=== PATIENT | female | born 1975 | race African-American/Black ===

== ENCOUNTER 2021-06-26 11:32 | Outpatient (CLI) | payer OTHER, SELFPAY ==
[2021-06-26 18:42] LABS: Hematocrit 41.3 % (37.0-47.0); Hemoglobin 12.8 g/dL (12.0-15.0); Mean Corpuscular Hemoglobin 25.7 pg (26-34); Mean Corpuscular Volume 82.8 fl (80-100); Mean Platelet Volume 10.2 fl (7.4-10.4); Platelet Count Result 360 k/mm3 (150-375); Red Blood Count 4.99 M/mm3 (4.2-5.4); Red Cell Distribution Width 15.1 % (11.5-14.5); White Blood Count 5.1 K/mm3 (4.5-10.0)
[2021-06-26 19:09] LABS: Alanine Aminotransferase 11 U/L (4-35); Albumin Level 4.1 g/dL (3.5-5.1); Alkaline Phosphatase 58 U/L (38-126); Anion Gap 10 mmol/L (8-16); Aspartate Amino Transferase 19 U/L (14-36); Bilirubin,Total 0.7 mg/dL (0.2-1.3); Blood Urea Nitrogen 12 mg/dL (7-17); Calcium 9.4 mg/dL (8.4-10.2); Carbon Dioxide 19 mmol/L (22-30); Chloride 107 mmol/L (98-107); Cholesterol 194 mg/dL (0-200); Estimated Glomerular Filt Rate > 60; Glucose 93 mg/dL (65-110); HDL Direct 79 mg/dL; Potassium 3.9 mmol/L (3.4-5.0); Sodium 136 mmol/L (137-145); Triglycerides 140 mg/dL (<150)
[2021-06-26 19:20] LABS: LDL Cholesterol Direct 79 mg/dL
[2021-06-26 19:38] LABS: Thyroid Stimulating Hormone Reflex 0.392 uIU/mL (0.465-4.68)
[2021-06-26 20:29] LABS: Free T4 Free Thyroxine Reflex 1.16 ng/dL (0.78-2.19)
[2021-06-26 21:16] LABS: Total Triiodothyronine (T3) 1.83 NG/ML (0.97-1.69)
== END 2021-06-26 11:33 | disposition home or self-care (01) ==
LOC: ANHBWCLAB 11:33
PROVIDERS: PCP Family Medicine; Visit Provider Family Medicine
DX: D64.9 Anemia, unspecified (principal); G43.909 Migraine, unspecified, not intractable, without status migrainosus; J45.909 Unspecified asthma, uncomplicated; E66.9 Obesity, unspecified
CPT/HCPCS: 36415; 80053; 80061; 83036; 84439; 84443; 84480; 85027

== ENCOUNTER 2021-07-17 07:35 | Outpatient (CLI) | payer OTHER, SELFPAY | END 2021-07-17 07:36 | disposition home or self-care (01) | PROVIDERS: PCP Family Medicine; Visit Provider Family Medicine | DX: R79.89 Other specified abnormal findings of blood chemistry (principal) | CPT/HCPCS: 36415; 84443 ==

== ENCOUNTER 2022-07-23 07:49 | Outpatient (CLI) | payer OTHER, SELFPAY ==
[2022-07-23 18:40] LABS: Alanine Aminotransferase 15 U/L (6-35); Albumin Level 4.1 g/dL (3.5-5.1); Alkaline Phosphatase 46 U/L (38-126); Anion Gap 4 mmol/L (8-16); Aspartate Amino Transferase 34 U/L (14-36); Bilirubin,Total 0.6 mg/dL (0.2-1.3); Blood Urea Nitrogen 8 mg/dL (7-17); Calcium 8.8 mg/dL (8.4-10.2); Carbon Dioxide 30 mmol/L (22-30); Chloride 103 mmol/L (98-107); Cholesterol 196 mg/dL (0-200); Estimated Glomerular Filt Rate > 60; Glucose 83 mg/dL (65-110); HDL Direct 70 mg/dL; Potassium 3.4 mmol/L (3.4-5.0); Sodium 137 mmol/L (137-145); Triglycerides 112 mg/dL (<150)
[2022-07-23 18:41] LABS: Basophils Percent Auto 0.5 % (0.2-1.2); Eosinophils Absolute Auto 0.1 K/mm3 (0-0.3); Eosinophils Percent Auto 1.2 % (0-4.4); Hematocrit 40.1 % (37.0-47.0); Hemoglobin 12.2 g/dL (12.0-15.0); Immature Granulocyte Absolute 0.01 K/mm3 (0.00-0.031); Immature Granulocyte Percent A 0.2 % (0-0.5); Lymphocytes Absolute Auto 0.96 K/mm3 (0.9-3.2); Lymphocytes Percent Auto 23.9 % (18.3-44.2); Mean Corpuscular HGB Conc 30.4 g/dl (32-36); Mean Corpuscular Hemoglobin 25.1 pg (26-34); Mean Corpuscular Volume 82.3 fl (80-100); Mean Platelet Volume 10.8 fl (7.4-10.4); Monocytes Absolute Auto 0.3 K/mm3 (0.1-0.6); Monocytes Percent Auto 7.5 % (2.6-8.5); Neutrophils Absolute Auto 2.7 K/mm3 (1.3-6.7); Neutrophils Percent Auto 66.7 % (45.5-73.1); Platelet Count Result 301 k/mm3 (150-375); Red Blood Count 4.87 M/mm3 (4.2-5.4); Red Cell Distribution Width 14.5 % (11.5-14.5)
[2022-07-23 18:51] LABS: LDL Cholesterol Direct 83 mg/dL
[2022-07-23 19:09] LABS: Thyroid Stimulating Hormone 0.888 uIU/mL (0.465-4.680)
== END 2022-07-23 07:50 | disposition home or self-care (01) ==
LOC: ANHBWCLAB 07:50
PROVIDERS: PCP Family Medicine; Visit Provider Family Medicine
DX: D64.9 Anemia, unspecified (principal); G43.909 Migraine, unspecified, not intractable, without status migrainosus; J45.909 Unspecified asthma, uncomplicated; R79.89 Other specified abnormal findings of blood chemistry; E66.9 Obesity, unspecified; Z12.11 Encounter for screening for malignant neoplasm of colon
CPT/HCPCS: 36415; 80053; 80061; 84443; 85025

== ENCOUNTER 2024-06-16 14:24 | Outpatient (CLI) | payer OTHER, SELFPAY ==
[2024-06-16 15:56] LABS: Influenza A QL RT-PCR Negative (Negative); Influenza B QL RT-PCR Negative (Negative); RSV RNA, RT-PCR Negative (Negative); SARS-CoV-2 RNA PCR Negative (Negative)
--- OUTSIDE RECORDS SUMMARY | 2024-06-16 16:06 | XMS_ITS | Encounter Summary ---
Author Organization [facility] Address [address] [place] [address] Care Team Providers Care Ironmolder Name Role Phone Kyara Hope MD Unavailable [phone] Edouard Wellington MD Primary Care Provider [phone] Michael Sanchez MD Unavailable [phone] Reason for Visit * Reason Onset Date Comments COVID-19 EVALUATION 06/16/2024 Encounter Details Date Type Department Care Team (Late st Contact Info) Description 06/16/2024 Telephone [facility] Occupatiuonal Health [address] [place] [address] Room 3420 (Third Floor) [place] [address] Jammie Maria, RN COVID-19 EVALUATION Social History Tobacco Use Types Packs/Day Years Used Date Smoking Tobacco: Never Smokeless Tobacco: Never AUDIT-C Answer Date Recorded Q1: How often do you have a drink containing alc ohol? 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 Employee Employer: [facility] Are you 100% SOTO? No Employee Facility: [facility] Are you okay receiving positive results and further instructions via email? 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 No Have you had a vaccine within the past 48 hours? No Are you calling about a home covid positive test? No Have you tested positive for COVID in the past 60 days? (not including the positive home test you are calling about today) No Have you had a known, specific Covid exposure within the last 14 days? No Have you had an exposure to Mpox, pertussis or Ken Influenza in the last 30 days? No Employee Symptoms: Yes Date of employee symptom onset: 06/13/2024 Description of Symptoms: Cough;Other Other Symptoms: post nasal drainage, hoarseness of voice Did you work on site 48 hours prior to symptom onset and/or any days while symptomatic? Yes Which date(s) did the employee work? 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 No Did you come within 6 feet for more than 15 minutes with any patients without wearing a mask duringthe 48 hours prior to symptom onset? And/or while symptomatic? No Plan: (A) Stay home and test for symptoms Testing Site Location: Going to her PCP and plans to have testing done there,then call [facility] with results. If PCP cannot do quad testing, she will go by [facility]. Reviewed Script A Script A0 (stay home and test) for symptomatic employees (HCW and Non-HCW) Thank you for calling the Occupational Health Call Center. This email contains the same informationand recommendations discussed during your call. You should also forward this information to your supervisor production managing as confirmation. Given your symptoms, you should not come to work and will be referred for combined COVID/Influenza/RSV testing. If you have had a COVID infection in the past 2 months, your COVID test will likely result positivedue to your prior infection. In this case, further guidance will be based solely on Influenza and RSV results. If you are at work on site, you must leave work now. Notify your supervisor production managing that you have been directed to do so by the Occupational Health Call Center. Please go to the employee testing site as directed for your test. They should be expecting you; if there is any confusion, please call us at [phone]. Since you are reporting symptoms, wear a hospital provided mask when reporting for your test. While you are awaiting testing and results, you must remain off work. You should isolate yourself at home, avoid contact with any household members as much as possible, and stay in your home without leaving except for medical care. You should let your supervisor production managing know that you will not be coming to work. Although we will email your supervisor production managing to confirm this, it is still your responsibility to notify your supervisor production managing as you wouldfor any other work absence. If you have the option to cannery worker and you feel well enough, it must be approved by your supervisor production managing We will notify you of your test results, which are usually available within 24- 48 hours. Your results will also post to your [facility] My Chart account ([email or web address]). Once yourresults are back, you will receive further instruction from Occupational Health. All further communication, including test results and guidance on returning to work, will be through the email you provided us during your screening. You must follow any additional isolation or quarantine instructions provided to you by federal, state, or local health authorities. Sincerely, Occupational Health Call Center Additional resources around self-isolation and how to prevent spread are available at: www.cdc.gov/coronavirus/2019-ncov TS BOOK WRITER documented in this encounter Plan of Treatment Scheduled Orders Name Type Priority Associated Diagnoses Orde r Schedule Influenza A/B, RSV, and COVID-19 PCR Nasopharyngeal Microbiology Routine Acute cough Post-nasal drainage Expected: 06/19/2024, Expires: 06/16/2025 documented as of this encounter Visit Diagnoses Diagnosis Acute cough- Primary Post-nasal drainage Other diseases of nasal cavity and sinuses documented in this encounter Additional Health Concerns Infection Onset Date Last Indicated Resolved Time COVID: Suspected 06/16/2024 06/16/2024 documented as of this encounter Care Teams Ironmolder Relationship Specialty Start Date End Date Edouard Wellington MD [address] [address] PCP - General Family Practice 08/07/21 Kyara Hope MD [address] [address] Referring Physician Obstetrics and Gynecology 08/03/21 Michael Sanchez MD [address] [id number] Referring Physician Obstetrics and Gynecology 09/04/22 documented as of this encounter
--- OUTSIDE RECORDS SUMMARY | 2024-06-16 16:06 | XMS_ITS | Clinical Summary ---
Author Organization [facility] Address [address] [place] [address] Care Team Providers Care Salesperson China And Glassware Name Role Phone Unavailable Primary Care Provider Unavailabl e Allergies No known active allergies Medications montelukast (SINGULAIR) 10 mg tablet 0 Active cetirizine (ZyrTEC) 10 mg tablet Take 10 mg by mouth 1 (one) time each day. Active methylPREDNISo lone (MEDROL DOSPAK) 4 mg tablet 6 TABLETS ON DAY ONE, 5 TABLETS DAY TWO, 4 TABLETS DAY THREE, 3 TABLETS DAY FOUR, 2 TABLETS DAY FIVE, AND 1 TABLET DAY SIX 1 Active EluRyng 0.12-0.015 mg/24 hr vaginal ring INSERT 1 RING VAGINALLY DIRECTED. REMOVE AFTER 3 WEEKS & WAIT 7 DAYS BEFORE INSERTING A NEW RING 2 Active Ozempic 0.25 mg or 0.5 mg(2 mg/1.5 mL) pen injector PLEASE SEE ATTACHED FOR DETAILED DIRECTIONS 2 Active albuterol HFA (PROVENTIL HFA;VENTOLIN HFA) 90 mcg/actuation inhaler every 4 hours Active benzonatate (TESSALON) 200 mg capsule Take 200 mg by mouth 3 (three) times a day if needed. 2 Active fluconazole (DIFLUCAN) 150 mg tablet fluconazole 150 mg tablet Active ibuprofen (ADVIL,MOTRIN) 800 mg tablet ibuprofen 800 mg tablet Active metroNIDAZOLE (METROGEL) 0.75 % (37.5mg/5 gram) vaginal gel 1 (one) time each day. Active topiramate (TOPAMAX) 25 mg tablet topiramate 25 mg tablet Active cetirizine (ZyrTEC) 10 mg chewable tablet Chew 10 mg 1 (one) time each day. Active methylPREDNISo lone (MEDROL DOSPAK) 4 mg tablet See administration instructions. 2 Active montelukast (SINGULAIR) 10 mg tablet Take 10 mg by mouth 1 (one) time each day. 2 Active Active Problems No known active problems Immunizations Immunization Administration Dates Next Due COVID-19, mRNA, LNP-S, PF, 1 00 mcg/0.5mL dose or 50 mcg/0.25mL dose 06/21/2020,05/24/2020 Social History Tobacco Use Types Packs/Day Years Used Date Smoking Tobacco: Never Smokeless Tobacco: Never Alcohol Use Standard Drinks/Week Comments Never 0 (1 standard drink = 0.6 oz pur e alcohol) Comments Unknown Sex and Gender Information Value Date Recorded Sex Assigned at Not on file Legal Sex Female 5:16 PM PST Gender Identity Not on file Sexual Orientation Not on file Last Filed Vital Signs Vital Sign Reading Time Taken Comments Blood Pressure 116/72 11/26/2021 2:42 PM CDT Pulse 78 11/26/2021 2:42 PM CDT Temperature 35.5 C (95.9 F) 02/06/2021 5:57 PM CDT Respiratory Rate - - Oxygen Saturation - - Inhaled Oxygen Concentration - - Weight - - Height - - Body Mass Index - - Plan of Treatment Health Maintenance Due Date Last Done Comments Dental X-Ray: Bitewings 01/05/2021 07/04/2020 Periodontal Maintenance 02/27/2022 11/27/19 22, 02/06/2021, 10/11/2020, Additional history exists Scaling and Root Planing 04/18/2022 04/04/2020 Dental Oral Exam 05/30/2022 11/26/2021, , 07/06/2020, Additional history exists Dental X-Ray: Full Mouth 11/15/2022 11/15/2019, 04/15 Dental X-Ray: Panoramic 11/15/2022 11/15/2019, 05/04 Meningococcal B Vaccine Aged Out No l onger eligible based on patient's age to complete this topic Procedures Procedure Name Priority Date/Time Associated Diagnosis Comments PERIODIC ORAL EVALUATION - ESTABLISHED PATIENT Routine 11/26/2021 3:00 PM CDT PERIO MAINTENANCE Routine 11/26/2021 3:0 0 PM CDT UL PERIODONTAL SCALING AND ROOT PLANING - ONE TO THREE TEETH PER QUADRANT Routine 04/04/2020 2:00 AM CIVIL ENGINEERING DESIGNER PANORAMIC RADIOGRAPHIC IMAGE Routine 05/04/2019 2:00 AM CIVIL ENGINEERING DESIGNER INTRAORAL - COMPREHENSIVE SERIES OF RADIOGRAPHIC IMAGES Routine 05/04/2019 2:00 AM CIVIL ENGINEERING DESIGNER from Last 3 Months or Most Recently Relevant to Health Maintenance Insurance
--- OUTSIDE RECORDS SUMMARY | 2024-06-16 16:06 | XMS_ITS | Referral Summary ---
Author Organization [facility] Medical [facility] [address] [place] [address] Care Team Providers Care Presser Hand Name Role Phone Kyara Hope MD Unavailable [phone] Edouard Wellington MD Primary Care Provider [phone] Michael Sanchez MD Unavailable [phone] Encounters Date Type Department Care Team Description 06/16/2024 Telephone [facility] [address] (Third Floor) [place] [address] Jammie Maria, RN COVID-19 EVALUATION from Last 3 Months Allergies No known active allergies Medications albuterol HFA (PROVENTIL HFA,VENTOLIN HFA,PROAIR HFA) 90 mcg/actuation inhaler every 4 hours Active cetirizine (ZyrTEC) 10 mg tablet daily Active ibuprofen (ADVIL,MOTRIN) 800 mg tablet ibuprofen 800 mg tablet Active etonogestreL-et hinyl estradioL (NUVARING, ELURYNG) 0.12-0.015 mg/24 hr vaginal ring NuvaRing 0.12 mg -0.015 mg/24 hr vaginal INSERT 1 RING VAGINALLY FOR 3 WEEKS, THEN REMOVE FOR 1 WEEK Active fluconazole (DIFLUCAN) 150 mg tablet fluconazole 150 mg tablet Active metroNIDAZOLE (METROGEL) 0.75 % vaginal gel daily Active neomycin-bacitr acin-polymyxin- hydrocortisone (CORTISPORIN) 3.5-400-10,000 mg-unit/g-1% ophthalmic ointment APPLY A SMALL AMOUNT ON EYELID AT BEDTIME 0 9 Active topiramate (TOPAMAX) 25 mg tablet topiramate 25 mg tablet Active montelukast (SINGULAIR) 10 mg tablet Take 1 tablet (10 mg total) by mouth daily 2 Active Active Problems No known active problems Social History Tobacco Use Types Packs/Day Years Used Date Smoking Tobacco: Never Smokeless Tobacco: Never Tobacco Cessation:Counseling Given: Not Answered AUDIT-C Answer Date Recorded Q1: How often do you have a drink containing alc ohol? 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 Gender Identity Not on file Sexual Orientation Not on file Last Filed Vital Signs Vital Sign Reading Time Taken Comments Blood Pressure - - Pulse - - Temperature - - Respiratory Rate - - Oxygen Saturation - - Inhaled Oxygen Concentration - - Weight 85.7 kg (188 lb 15 oz) 10/16/2022 1:50 PM CDT Height 162.6 cm (5' 4.02 ) 10/16/2022 1:50 PM CD T Body Mass Index 32.41 10/16/2022 1:50 PM CDT Plan of Treatment Not on file Medical Devices Implanted Type Area Manufacturing Engineering Technician Device Identifier Shelf Expiration Date Model / Serial / Lot Bard Peripheral Vascular Ultraclip Bard 17ga 10cm 2 Trigger Permanent Ultrasound [id number] - [id number] Implanted:Qty: 1 on 09/20/[address] [facility] [employer] Peripheral Vascular [id number] / / Procedures Procedure Name Priority Date/Time Associated Diagnosis Comments SCREENING MAMMOGRAM BILATERAL W NIKKI Schedule Routine, Read Routine (OP Routine) 09/10/2023 7:50 AM CDT Screening mammogram, encounter for from Last 3 Months or Most Recently Relevant to Health Maintenance Results * Screening Mammogram Bilateral W Nikki (09/10/2023 7:50 AM CDT) Anatomical Region Laterality Modality Breast Bilateral Mammography Narrative 09/10/2023 11:53 AM CDT Mammogram Technique: Bilateral Digital Breast Tomosynthesis, Bilateral C-view 2D Screening mammogram. Views obtained: bilateral craniocaudal and bilateral mediolateral oblique. Computer Aided Detection was performed. Mammogram Findings: The present examination has been compared to prior imaging studies performed at [facility] on 08/31/2022 and 10/16/2022, and at [facility] on 07/31/2021. There are scattered areas of fibroglandular density. There is no suspicious abnormality in either breast. Impression: There is no mammographic evidence of malignancy. Annual screening mammography is recommended. OVERALL FINAL ASSESSMENT: BI-RADS CATEGORY 1: Negative. Procedure Note May Jara MD - 09/10/2023 Mammogram Technique: Bilateral Digital Breast Tomosynthesis, Bilateral C-view 2D Screening mammogram. Views obtained: bilateral craniocaudal and bilateral mediolateral oblique. Computer Aided Detection was performed. Mammogram Findings: The present examination has been compared to prior imaging studies performed at [facility] on 08/31/2022 and 10/16/2022, and [facility] on 07/31/2021. There are scattered areas of fibroglandular density. There is no suspicious abnormality in either breast. Impression: There is no mammographic evidence of malignancy. Annual screening mammography is recommended. OVERALL FINAL ASSESSMENT: BI-RADS CATEGORY 1: Negative. us Self Screening Mammogram IMG MAMMO PROCEDURES Fi nal Result from Last 3 Months or Most Recently Relevant to Health Maintenance Additional Health Concerns Infection Onset Date Last Indicated COVID: Suspected 06/16/2024 06/16/2024 Insurance [facility] EMPL[employer] HE[employer] PLANS Address: [address] [facility] [id number] [place] [address] [employer] Address: [address] [place] [address] Care Teams Presser Hand Relationship Specialty Start Date End Date Edouard Wellington MD [address] [address] PCP - General Family Practice 08/07/21 Kyara Hope MD [address] [address] Referring Physician Obstetrics and Gynecology 08/03/21 Michael Sanchez MD [address] [address] Referring Physician Obstetrics and Gynecology 09/04/22
--- OUTSIDE RECORDS SUMMARY | 2024-06-16 16:06 | XMS_ITS | Encounter Summary ---
Author Organization [facility] Address [address] [place] [address] Care Team Providers Care Shipping And Receiving Associate Name Role Phone Randa Jeffries NP Primary Care Provider [phone] Reason for Visit * Diagnostic Imaging (Routine) - Closed Specialty Diagnoses / Procedures Referred By Isabel butler Referred To Contact Procedures Breast Imaging Screening Outside Reference Tara King NP Phone: tel: fax: Referral ID Status Reason Start Date Expiration Date Visits Re quested Visits Authorized [id number] Closed 08/27/2021 09/26/2022 1 1 Encounter Details Date Type Department Care Team (Late st Contact Info) Description 08/09/2020 Hospital Encounter [facility] [address] [place] [address] Social History Tobacco Use Types Packs/Day Years [...] on file Legal Sex Female 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 CONE SEWER Gender Identity Not on file Sexual Orientation Not on file documented as of this encounter Functional Status documented as of this encounter Plan of Treatment Not on file documented as of this encounter Procedures Procedure Name Priority Date/Time Associated Diagnosis Comments BREAST IMAGING MG SCREENING OUTSIDE REFERENCE Routine 08/09/2020 12:00 AM CDT documented in this encounter Results * Breast Imaging Screening Outside Reference (08/09/2020 12:00 AM CDT) Impressions [facility]_M[facility]MO[facility] - 08/27/2021 9:45 AM CDT These images are for Reference purposes only and have not been reviewed by [facility] Radiology. There will be no report generated by a [facility] Radiologist. Narrative [facility]_MAMMO[facility] - 08/27/2021 9:45 AM CDT EXAMINATION: Images For Reference Purposes Only us Tara King NP IMG MAMMO PROCEDURES Final Re sult [facility] documented in this encounter Visit Diagnoses Not on filedocumented in this encounter Additional Health Concerns Infection Onset Date Last Indicated Resolved Time COVID: Suspected 06/16/2024 06/16/2024 documented as of this encounter Care Teams Shipping And Receiving Associate Relationship Specialty Start Date End Date Randa Jeffries NP [address] [place] [address] PCP - General Nurse Practitioner 01/01/19 08/06/21 documented as of this encounter
--- OUTSIDE RECORDS SUMMARY | 2024-06-16 16:06 | XMS_ITS | Encounter Summary ---
Author Organization [facility] Address [address] [place] [address] Care Team Providers Care Mushroom Sorter Grader Name Role Phone Unavailable Primary Care Provider Unavailabl e Prior Encounters Date Type Department Care Team Description 12/11/2021 3:30 PM CDT Office Visit [facility] [address] [place] [address] Yannick Gonzalez DDS 11/26/2021 Travel 11/26/2021 3:00 PM CDT Office Visit [facility] [address] [place] [address] 11/26/2021 3:00 PM CDT Office Visit [facility] [address] [place] [address] Yannick Gonzalez DDS 02/06/2021 Travel 02/06/2021 6:00 PM CDT Office Visit [facility] [address] [place] [address] Deyis Martinez, DMD 02/06/2021 6:00 PM CDT Office Visit [facility] [address] [place] [address] Iwona Francois RDH 10/11/2020 Travel 10/11/2020 1:00 PM CDT Office Visit [facility] [address] [place] [address] Iwona Francois RDH 05/03/2019 Converted CPS Chart Documents [facility] [address] [place] [address] <No scans attached> 05/03/2019 Converted 13x Documents [facility] [address] [place] [address] <No scans attached> Last Filed Vital Signs Vital Sign Reading Time Taken Comments Blood Pressure 116/72 11/26/2021 2:42 PM CDT Pulse 78 11/26/2021 2:42 PM CDT Temperature 35.5 C (95.9 F) 02/06/2021 5:57 PM CDT Respiratory Rate - - Oxygen Saturation - - Inhaled Oxygen Concentration - - Weight - - Height - - Body Mass Index - - Plan of Treatment Not on file Procedures Procedure Name Priority Date/Time Associated Diagnosis Comments NC X-RAY Routine 12/11/2021 3:30 PM CDT 30 CEMENT CROWN Routine 12/11/2021 3:30 PM CDT 30 CORE BUILDUP, INCLUDING ANY PINS WHEN REQUIRED Routine 12/11/2021 3:30 PM CDT 30 CERECFIRED CROWNPOST Routine 12/12/19 3:30 PM CDT ORAL HYGIENE INSTRUCTIONS Routine 2021 3:00 PM CDT PERIO MAINTENANCE Routine 11/26/2021 3:0 0 PM CDT UR ANTIBACT IRR/QUAD Routine 11/26/2021 3:00 PM CDT MARCELINA DECON Routine 11/26/2021 3:00 PM CDT UL ANTIBACT IRR/QUAD Routine 11/26/2021 3:00 PM CDT LR ANTIBACT IRR/QUAD Routine 11/26/2021 3:00 PM CDT LL ANTIBACT IRR/QUAD Routine 11/26/2021 3:00 PM CDT PERIODIC ORAL EVALUATION - ESTABLISHED PATIENT Routine 11/26/2021 3:00 PM CDT ORAL HYGIENE INSTRUCTIONS Routine 2020 6:00 PM CDT PERIO MAINTENANCE Routine 02/06/2021 6:0 0 PM CDT PERIODIC ORAL EVALUATION - ESTABLISHED PATIENT Routine 02/06/2021 6:00 PM CDT TOPICAL APPLICATION OF FLUORIDE VARNISH Routine 10/11/2020 1:00 PM CDT PERIO MAINTENANCE Routine 10/11/2020 1:0 0 PM CDT PERIODIC ORAL EVALUATION - ESTABLISHED PATIENT Routine 07/06/2020 2:00 AM CDT PERIO MAINTENANCE Routine 07/04/2020 2:0 0 AM CDT ORAL HYGIENE INSTRUCTIONS Routine 2020 2:00 AM CDT ORAL-B ELEC BRUSH Routine 07/04/2020 2:0 0 AM CDT BITEWINGS - FOUR RADIOGRAPHIC IMAGES Routine 07/04/2020 2:00 AM CDT 20 DO COMPOSITE FILLING Routine 07/05/19 2:00 AM CDT 5 B COMPOSITE FILLING Routine 07/04/2020 2:00 AM CDT ORAL HYGIENE INSTRUCTIONS Routine 2019 2:00 AM BRAKE OPERATOR ORAL HYGIENE INSTRUCTIONS Routine 2019 2:00 AM BRAKE OPERATOR UL PERIODONTAL SCALING AND ROOT PLANING - ONE TO THREE TEETH PER QUADRANT Routine 04/04/2020 2:00 AM BRAKE OPERATOR UL ANTIBACT IRR/QUAD Routine 04/04/2020 2:00 AM BRAKE OPERATOR TOPICAL APPLICATION OF FLUORIDE VARNISH Routine 04/04/2020 2:00 AM BRAKE OPERATOR PROPHYLAXIS - ADULT Routine 04/04/2020 2 :00 AM BRAKE OPERATOR CANCELLED APPOINTMENT Routine 06/11/2019 2:00 AM BRAKE OPERATOR CANCELLED APPOINTMENT Routine 06/11/2019 2:00 AM BRAKE OPERATOR 14 LO AMALGAM 2 SURFACE Routine 05/04/19 20 2:00 AM BRAKE OPERATOR 2 LO AMALGAM 2 SURFACE Routine 0 2:00 AM BRAKE OPERATOR 30 CERECFIRED CROWNPOST Routine 05/04/19 2:00 AM BRAKE OPERATOR 13 CERECFIRED CROWNPOST Routine 05/04/19 20 2:00 AM BRAKE OPERATOR ORAL HYGIENE INSTRUCTIONS Routine 2019 2:00 AM BRAKE OPERATOR TOPICAL APPLICATION OF FLUORIDE VARNISH Routine 05/04/2019 2:00 AM BRAKE OPERATOR PROPHYLAXIS - ADULT Routine 05/04/2019 2 :00 AM BRAKE OPERATOR COMPREHENSIVE ORAL EVALUATION - NEW OR ESTABLISHED PATIENT Routine 05/04/2019 2:00 AM BRAKE OPERATOR PANORAMIC RADIOGRAPHIC IMAGE Routine 05/04/2019 2:00 AM BRAKE OPERATOR INTRAORAL - COMPREHENSIVE SERIES OF RADIOGRAPHIC IMAGES Routine 05/04/2019 2:00 AM BRAKE OPERATOR INTRAORAL PHOTO Routine 05/04/2019 2:00 AM BRAKE OPERATOR INTRAORAL PHOTO Routine 05/04/2019 2:00 AM BRAKE OPERATOR INTRAORAL PHOTO Routine 05/04/2019 2:00 AM BRAKE OPERATOR INTRAORAL PHOTO Routine 05/04/2019 2:00 AM BRAKE OPERATOR 15 LO COMPOSITE FILLING Routine 05/04/19 20 2:00 AM BRAKE OPERATOR 5 DO COMPOSITE FILLING Routine 0 2:00 AM BRAKE OPERATOR 4 MO COMPOSITE FILLING Routine 0 2:00 AM BRAKE OPERATOR 3 LO COMPOSITE FILLING Routine 0 2:00 AM BRAKE OPERATOR 31 O COMPOSITE FILLING Routine 0 2:00 AM BRAKE OPERATOR 20 O COMPOSITE FILLING Routine 0 2:00 AM BRAKE OPERATOR 18 O COMPOSITE FILLING Routine 0 2:00 AM BRAKE OPERATOR Visit Diagnoses Not on file Insurance [facility] PPO
--- OUTSIDE RECORDS SUMMARY | 2024-06-16 16:06 | XMS_ITS | Encounter Summary ---
Author Organization [facility] Healthcare Address [address] [place] [address] Care Team Providers Care Metal Shaping Machine Operator Name Role Phone Randa Jeffries NP Primary Care Provider + [phone] Reason for Visit * Diagnostic Imaging (Routine) - Closed Specialty Diagnoses / Procedures Referred By Isabel butler Referred To Contact Procedures Breast Imaging Diagnostic Outside Reference Tara King NP Phone: tel: fax: Referral ID Status Reason Start Date Expiration Date Visits Re quested Visits Authorized [id number] Closed 08/27/2021 09/26/2022 1 1 Encounter Details Date Type Department Care Team (Late st Contact Info) Description 08/21/2020 Hospital Encounter [facility] [address] [place] [id number] Social History Tobacco Use Types Packs/Day Years [...] on file 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 Gender Identity Not on file Sexual Orientation Not on file documented as of this encounter Functional Status documented as of this encounter Plan of Treatment Not on file documented as of this encounter Procedures Procedure Name Priority Date/Time Associated Diagnosis Comments BREAST IMAGING MG DIAGNOSTIC OUTSIDE REFERENCE Routine 08/21/2020 12:00 AM CDT documented in this encounter Results * Breast Imaging Diagnostic Outside Reference (08/21/2020 12:00 AM CDT) Impressions [facility] - 08/27/2021 9:45 AM CDT These images are for Reference purposes only and have not been reviewed by [facility]. There will be no report generated by a [facility]iologist. Narrative [facility] - 08/27/2021 9:45 AM CDT EXAMINATION: Images For Reference Purposes Only us Tara King NP IMG MAMMO PROCEDURES Final Re sult [facility] documented in this encounter Visit Diagnoses Not on filedocumented in this encounter Additional Health Concerns Infection Onset Date Last Indicated Resolved Time COVID: Suspected 06/16/2024 06/16/2024 documented as of this encounter Care Teams Metal Shaping Machine Operator Relationship Specialty Start Date End Date Randa Jeffries NP [address] [place] [id number] PCP - General Nurse Practitioner 01/01/19 08/06/21 documented as of this encounter
--- OUTSIDE RECORDS SUMMARY | 2024-06-16 16:06 | XMS_ITS | Encounter Summary ---
Author Organization [facility] Healthcare Address [address] [place] [address] Care Team Providers Care Glue Mixer Name Role Phone Unavailable Primary Care Provider Unavailabl e Reason for Visit * Diagnostic Imaging (Routine) - Closed Specialty Diagnoses / Procedures Referred By Isabel butler Referred To Contact Procedures Breast Imaging Screening Outside Reference Tara King, NATALIE Phone: tel: fax: Referral ID Status Reason Start Date Expiration Date Visits Re quested Visits Authorized [id number] Closed 08/27/2021 09/26/2022 1 1 Encounter Details Date Type Department Care Team (Late st Contact Info) Description 03/01/2017 Hospital Encounter [facility] [address] [place] [id number] Social History Tobacco Use Types Packs/Day Years [...] on file 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 Gender Identity Not on file Sexual Orientation Not on file documented as of this encounter Functional Status documented as of this encounter Plan of Treatment Not on file documented as of this encounter Procedures Procedure Name Priority Date/Time Associated Diagnosis Comments BREAST IMAGING MG SCREENING OUTSIDE REFERENCE Routine 03/01/2017 12:00 AM PAYROLL DIRECTOR documented in this encounter Results * Breast Imaging Screening Outside Reference (03/01/2017 12:00 AM PAYROLL DIRECTOR) Impressions [facility] - 08/27/2021 9:44 AM CDT These images are for Reference purposes only and have not been reviewed by [facility]. There will be no report generated by a [facility]iologist. Narrative RAD_MAMMO[facility] - 08/27/2021 9:44 AM CDT EXAMINATION: Images For Reference Purposes Only us Tara King NP IMG MAMMO PROCEDURES Final Re sult [facility] documented in this encounter Visit Diagnoses Not on filedocumented in this encounter Additional Health Concerns Infection Onset Date Last Indicated Resolved Time COVID: Suspected 06/16/2024 06/16/2024 documented as of this encounter
--- OUTSIDE RECORDS SUMMARY | 2024-06-16 16:06 | XMS_ITS | Encounter Summary ---
Author Organization [facility] Healthcare Address [address] [place] [address] Care Team Providers Care Clerk Typist Name Role Phone Randa Jeffries NP Primary Care Provider + [phone] Reason for Visit * Diagnostic Imaging (Routine) - Closed Specialty Diagnoses / Procedures Referred By Isabel butler Referred To Contact Procedures Breast Imaging US Outside Reference Tara King NP Phone: tel: fax: Referral ID Status Reason Start Date Expiration Date Visits Re quested Visits Authorized [id number] Closed 08/27/2021 09/26/2022 1 1 Encounter Details Date Type Department Care Team (Late st Contact Info) Description 08/21/2020 12:05 AM CDT Hospital Encounter [facility] [address] [place] [id number] Social History Tobacco Use Types Packs/Day Years [...] on file 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 Gender Identity Not on file Sexual Orientation Not on file documented as of this encounter Functional Status documented as of this encounter Plan of Treatment Not on file documented as of this encounter Procedures Procedure Name Priority Date/Time Associated Diagnosis Comments BREAST IMAGING US OUTSIDE REFERENCE Routine 08/21/2020 12:05 AM CDT documented in this encounter Results * Breast Imaging US Outside Reference (08/21/2020 12:05 AM CDT) Impressions [facility] - 08/27/2021 9:45 AM CDT These images are for Reference purposes only and have not been reviewed by [facility]. There will be no report generated by a [facility]iologist. Narrative [facility] - 08/27/2021 9:45 AM CDT EXAMINATION: Images For Reference Purposes Only us Tara King NP IMG MAMMO PROCEDURES Final Re sult [facility] documented in this encounter Visit Diagnoses Not on filedocumented in this encounter Additional Health Concerns Infection Onset Date Last Indicated Resolved Time COVID: Suspected 06/16/2024 06/16/2024 documented as of this encounter Care Teams Clerk Typist Relationship Specialty Start Date End Date Randa Jeffries NP [address] [place] [address] PCP - General Nurse Practitioner 01/01/19 08/06/21 documented as of this encounter
--- OUTSIDE RECORDS SUMMARY | 2024-06-16 16:06 | XMS_ITS | Clinical Summary ---
Author Organization [facility] Medical [facility] 2 Address [address] [facility] [place] [address] Care Team Providers Care Phosphoric Acid Supervisor Name Role Phone Kyara Hope MD Unavailable [phone] Edouard Wellington MD Primary Care Provider [phone] Michael Sanchez MD Unavailable [phone] Allergies No known active allergies Medications albuterol [...] tablet (10 mg total) by mouth daily Active Active Problems No known active problems Encounters Date Type Department Care Team Description 06/16/2024 [facility]phone [facility] [address] [facility] [address] (Third Floor) [place] [address] Jammie Maria, RN COVID-19 EVALUATION from Last 3 Months Surgical History Surgery Date Site/Laterality Comments SECTION 04/14/2000 - 04/13/2001 N/A BREAST BIOPSY 09/20/2021 Right Medical History Medical History Date Comments Headache Overweight Asthma Social History Tobacco Use Types Packs/Day Years [...] on file 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 Gender Identity Not on file Sexual Orientation Not on file Obstetrics History Last Filed Vital Signs Vital Sign Reading [...] 10/16/2022 1:50 PM CDT Plan of Treatment Health Maintenance Due Date Last Done Comments Cervical Cancer Screening 1976 Colon Cancer Screening-Colonoscopy 1976 Depression Screening 1976 Hepatitis C Screening 1976 DTaP/Tdap/Td Vaccine (1 - Tdap) 11/25/1987 Hepatitis B Screening 1994 Regular Well Visit/Exam 18-64 1994 Pneumococcal vaccine <65 (1 of 2 - PCV) 11/25/1995 Covid-19 Vaccine (2023-2 5 season) 2023 02/07/2021, 06/21/2020, 05/24/2020 Influenza Vaccine (#1) 2023 , 01/14/2018, 01/26/2015, Additional history exists Breast Cancer Screening-Mammogram 09/09/2024 09/10/2023, 08/31/2022, 03/13/2017 Medical Devices Implanted Type Area Back Tender Pulp Drier Device Identifier Shelf Expiration Date Model / Serial / Lot [employer] Peripheral Vascular Ultraclip Bard 17ga 10cm 2 Trigger Permanent Ultrasound [id number] - [id number] Implanted:Qty: 1 on 09/20/2021 at [facility] [employer] [id number] / / Procedures Procedure Name Priority Date/Time [...] compared to prior imaging studies performed at [facility] on 08/31/2022 and 10/16/2022, and at [facility] on 07/31/2021. There are scattered areas of [...] compared to prior imaging studies performed at [facility] on 08/31/2022 and 10/16/2022, and [facility] on 07/31/2021. There are scattered areas of [...] Last Indicated COVID: Suspected 06/16/2024 06/16/2024 Insurance [facility] [employer] PL[employer] Address: [facility] [id number] [place] [id number] [facility] [employer] HE[employer] PLANS Address: [facility] [id number] [place] [id number] Care Teams Phosphoric Acid Supervisor Relationship Specialty Start Date End Date Edouard Wellington MD [address] [id number] PCP - General Family Practice 08/07/21 Kyara Hope MD [address] [facility] [address] [address] Referring Physician Obstetrics and Gynecology 08/03/21 Michael Sanchez MD [address] [facility] [address] [address] Referring Physician Obstetrics and Gynecology 09/04/22
--- OUTSIDE RECORDS SUMMARY | 2024-06-16 16:06 | XMS_ITS | Clinical Summary ---
Author Organization [facility] Address [address] [place] [address] Care Team Providers Care Steam Tunnel Feeder Name Role Phone None, Provider MD Primary Care Provider Unavaila ble Allergies No known active allergies Medications montelukast 10 MG tablet 01/14/2021 Active albuterol sulfate HFA (PROAIR HFA) 108 (90 Base) MCG/ACT inhaler Inhale 2 puffs into the lungs every 6 (six) hours as needed for Wheezing. Active cetirizine 10 MG chewable tablet Chew 10 mg by mouth daily. Active methylPREDNISol one, OFELIA, 4 MG tablet Take as directed on package. 1 each 04/26/2021 Active benzonatate 200 MG capsule Take 1 capsule (200 mg total) by mouth 3 (three) times daily as needed. 30 capsule 04/26/2021 Active Active Problems No known active problems Immunizations Name Administration Dates Next Due MODERNA COVID-19 (12+) MRNA, LNP-S, PF, 100 MCG/ 0.5 ML DOSE 06/21/2020,05/24/2020 Family History Medical History Relation Comments No Known Problems Father No Known Problems Mother Relation Status Comments Father Alive Mother Alive Social History Tobacco Use Types Packs/Day Years Used Date Smoking Tobacco: Never Smokeless Tobacco: Never Alcohol Use Standard Drinks/Week Comments Yes 3.3 (1 standard drink = 0.6 oz p ure alcohol) socially Comments No Sex and Gender Information Value Date Recorded Sex Assigned at Not on file Legal Sex Female 6:21 PM CDT Gender Identity Not on file Sexual Orientation Not on file Last Filed Vital Signs Vital Sign Reading Time Taken Comments Blood Pressure 128/84 09/12/2022 2:00 AM CDT Pulse 102 09/12/2022 12:04 AM CDT Temperature 36.8 C (98.2 F) 09/12/2022 12:04 AM CDT Respiratory Rate 18 09/12/2022 12:04 AM CDT Oxygen Saturation 100% 09/12/2022 2:00 AM CDT Inhaled Oxygen Concentration - - Weight 65.8 kg (145 lb) 09/12/2022 12:04 AM CDT Height 162.6 cm (5' 4 ) 09/12/2022 12:04 AM CDT Body Mass Index 24.89 09/12/2022 12:04 AM CDT Plan of Treatment Health Maintenance Due Date Last Done Comments Cervical Cancer Screening Pap Smear (Age 30 to 64) Every 3 Years 1976 Colorectal Cancer Screening Colonoscopy (10 Years) 1976 Annual Physical 11/25/1979 Hepatitis C 1994 DTaP, Tdap and Td Vaccines (1 - Tdap) 11/25/1995 Hepatitis B Vaccines (1 of 3 - 19+ 3-dose series) 11/25/1995 Cervical Cancer Screening Pap with HPV Testing (Age 30 to 64) Every 5 Years 2006 Cervical Cancer Screening with HPV 2006 Mammogram Screening 08/01/2023 07/31/2021, 02/12/2021, 08/21/2020, Additional history exists COVID-19 Vaccine (2023- season) 2023 06/21/2020, 05/24/2020 Influenza Adult (#1) 2024 01/14/2018, 01/27/20 15 Meningococcal B Vaccine Aged Out No l onger eligible based on patient's age to complete this topic Meningococcal Vaccine Aged Out No alvin bill eligible based on patient's age to complete this topic Pneumococcal Vaccine: Pediatrics (0 to 5 Years) and At-Risk Patients (6 to 64 Years) Aged Out No longer eligible based on patient's age to complete this topic RSV Immunizations Under 20 Months Aged Out No longer eligible based on patient's age to complete this topic Procedures Procedure Name Priority Date/Time Associated Diagnosis Comments MG DIAG W NIKKI BILAT DIGI Routine 07/31/2021 7:40 AM CDT Unspecified lump in the right breast, unspecified quadrant from Last 3 Months or Most Recently Relevant to Health Maintenance Results * MG DEMARIO TELLO (07/31/2021 7:40 AM CDT) Anatomical Region Laterality Modality Breast Bilateral Mammography 07/31/2021 9:01 AM CDT Impressions 07/31/2021 9:08 AM CDT =====IMPRESSION:===== The patient's right breast mass has changed morphologically. This is increased in size. This is now 1.5 cm. This is located at the 4:00 position 6 cm from the nipple. Further evaluation with tissue sampling is recommended. Within the left breast at the 2:00 position 8 cm from the nipple there is an 8 mm hypoechoic mass with minimal internal echoes. This may relate to a complicated cyst. Six-month follow-up recommended. ASSESSMENT: ACR BI-RADS 4 - SUSPICIOUS FINDING(S) - BIOPSY SHOULD BE CONSIDERED Recommendation: 1: Biopsy should be considered Right COMMENTS: Ordered By: MALLIKA MUNGUIA Interpreted By: Loc Mccormick MD, 07/31/2021 9:01 AM Narrative 07/31/2021 9:08 AM CDT EXAMINATION: Digital bilateral diagnostic mammogram with 3-D tomography and bilateral breast ultrasounds [id number], [id number] EXAM DATE/TIME: 07/31/2021 7:22 AM REASON FOR EXAM: Unspecified lump in the right breast, unspecified quadrant COMPARISON: February 12, 2021, August 21, 2020, August 09, 2020, February 2017 TECHNIQUE: Digital diagnostic mammography of both breasts was performed in addition to 3-D Tomosynthesis technique. This study was read with the assistance of a computer-aided detection system. Grayscale and color Doppler images of the right and left breast. TISSUE DENSITY: There are scattered areas of fibroglandular density. FINDINGS: Patient has a known mass in the medial aspect of the inferior right breast this is once again noted. This is slightly more lobular on the current examination. Further evaluation is performed with ultrasound. Right breast ultrasound at the 4:00 position of the right breast the patient's previously noted mass is once again noted. This is now multilobular. This is hypoechoic without posterior acoustic shadowing. This measures 1.5 x 0.8 x 1 cm. Further evaluation with tissue sampling recommended. Within the left breast mammographically there is a new mass that is present in the lateral superior aspect of the breast. This does persist after compression is applied. Further evaluation with ultrasound is performed. Within the left breast at 3:00 position 8 cm from the nipple there is an oval hypoechoic area that is present. Minimal internal echoes are present. There is posterior acoustic enhancement. This measures 8 mm. This is suggestive of a cyst. No internal color flow is present. Six-month follow-up recommended. us Mallika Munguia MD MAMMO Final Result from Last 3 Months or Most Recently Relevant to Health Maintenance Care Teams Steam Tunnel Feeder Relationship Specialty Start Date End Date None, Provider, PCP - General 04/26/21
== END 2024-06-16 14:25 | disposition home or self-care (01) ==
LOC: ANHLAB 14:26
PROVIDERS: PCP Family Medicine; Visit Provider Family Medicine
DX: J06.9 Acute upper respiratory infection, unspecified (principal); Z20.822 Contact with and (suspected) exposure to COVID-19
CPT/HCPCS: 87637

== ENCOUNTER 2024-09-10 13:35 | Outpatient (CLI) | payer OTHER, SELFPAY ==
--- NOTE | ~2024-09-10 | US_ITS ---
EXAM: PELVIC ULTRASOUND HISTORY: N95.1 - Menopausal and female climacteric states COMPARISON: None. FINDINGS: UTERUS: 9.5 x 4.7 x 5.0 cm. The uterus is anteverted and anteflexed. The endometrial complex measures 12mm in maximal transverse dimension. Trace free fluid is identified within the endometrial canal. RIGHT OVARY: Despite prolonged interrogation, the right ovary was not visualized. LEFT OVARY: Despite prolonged interrogation, the left ovary was not visualized. No free fluid is identified within the pelvis. IMPRESSION: Despite prolonged interrogation, neither ovary was visualized. Trace free fluid within the endometrial canal. Reviewed, dictated and finalized at location A.
== END 2024-09-10 13:36 | disposition home or self-care (01) ==
LOC: MICIMG 13:35
PROVIDERS: PCP Family Medicine; Visit Provider Nurse Practitioner Obstetrics & Gynecology
DX: N92.0 Excessive and frequent menstruation with regular cycle (principal); N95.1 Menopausal and female climacteric states
CPT/HCPCS: 76830; 76856